=== PATIENT | male | born 1935 | race Hispanic/Latino ===

== ENCOUNTER 2018-01-03 12:22 | Inpatient (IN) | payer MEDICARE ==
--- NOTE | 2018-01-03 12:57 | ED PDOC ---
Arrival/HPI - General Time Seen by Provider: 01/03/18 12:32 Historian: Patient - History of Present Illness Narrative History of Present Illness (Text): 01/03/18 12:50 A 82 year old male, whose past medical history includes hyperlipidemia, angina, CA, 1 stent, arthritis, and benign stomach tumor removed, presents to the emergency department complaining of cough with phlegm, weakness, and shortness of breath for 5 days. Patient reports after returning from [place], patient began experiencing symptoms and was shortness of breath after going up flight of stairs. Patient was sent by automatic engraver for possible pneumonia. Notes also experiencing slight fever and rhinorrhea. Patient denies any other complaints at this time. PMD: Dr. Monty Parekh Pulmonolgist: Dr. Vinny Gonzáles Time/Duration: < week (5 days) Past Medical History - Provider Review Nursing Documentation Reviewed: Yes - Cardiac Hx Cardiac Disorders: Yes Hx Angina: Yes Hx Hypertension: Yes - Pulmonary Hx Respiratory Disorders: No - HEENT Hx Cataracts: Yes (bilaterally) Other/Comment: history sinus polyps removedc sep 2013 - Renal Hx Renal Disorder: No - Hematological/Oncological Hx Blood Disorders: Yes Hx Cancer: Yes (throat cancer treated with radiation 10-12 yrs) - Integumentary Hx Dermatological Disorder: No - Musculoskeletal/Rheumatological Hx Arthritis: Yes (both knees) - Gastrointestinal Hx Gastrointestinal Disorders: Yes Hx Gastroesophageal Reflux: Yes Other/Comment: benign stomach tumor removal 1993 - Genitourinary/Gynecological Hx Genitourinary Disorders: Yes Hx Prostate Problems: Yes - Psychiatric Hx Psychophysiologic Disorder: No - Surgical History Hx Cardiac Catheterization: Yes (nov 2013 cardiac stenting) Other/Comment: removal benign tumor stomach wall 1993 throat CA bx 9 yrs ago egd colonscopies - Anesthesia Hx Anesthesia: Yes Hx Anesthesia Reactions: No Hx Malignant Hyperthermia: No Family/Social History - Physician Review Nursing Documentation Reviewed: Yes Family/Social History: No Known Family HX Smoking Status: Former Smoker Hx Alcohol Use: No Allergies/Home Meds Allergies/Adverse Reactions: Allergies No Known Allergies Allergy (Verified 08/08/12 10:27) Home Medications: Home Meds Medication Instructions Recorded Confirmed Carvedilol [Coreg] 12.5 mg PO BID 12/02/13 01/03/18 Esomeprazole Magnesium [Nexium] 40 mg PO DAILY 12/02/13 01/03/18 Aspirin [Ecotrin] 81 mg PO DAILY 09/09/16 01/03/18 Furosemide [Lasix] 20 mg PO DAILY 09/09/16 01/03/18 Lisinopril [Zestril] 2.5 mg PO DAILY 09/09/16 01/03/18 Potassium Chloride [Klor-Con M10] 10 meq PO DAILY 09/09/16 01/03/18 Rosuvastatin Calcium [Crestor] 20 mg PO DAILY 09/09/16 01/03/18 Review of Systems - Physician Review All systems were reviewed & negative as marked: Yes - Review of Systems Constitutional: Fevers (slightly), Other (weakness). absent: Night Sweats ENT: Rhinorrhea Respiratory: SOB, Cough (with phlegm) Cardiovascular: GUILLERMO. absent: Chest Pain, Palpitations Gastrointestinal: absent: Abdominal Pain, Diarrhea, Nausea, Vomiting Physical Exam Vital Signs Reviewed: Yes Vital Signs Temp Pulse Resp BP Pulse Ox 01/03/18 15:27 65 20 116/62 99 01/03/18 15:24 116/62 01/03/18 12:23 98.2 F 58 L 19 110/54 L 96 Temperature: Afebrile Blood Pressure: Normal Pulse: Regular Respiratory Rate: Normal Appearance: Positive for: Well-Appearing Pain Distress: None Mental Status: Positive for: Alert and Oriented X 3 - Systems Exam Head: Present: Atraumatic, Normocephalic Pupils: Present: PERRL Extroacular Muscles: Present: EOMI Conjunctiva: Present: Normal Mouth: Present: Moist Mucous Membranes Neck: Present: Normal Range of Motion Respiratory/Chest: Present: Clear to Auscultation, Good Air Exchange. No: Respiratory Distress, Accessory Muscle Use Cardiovascular: Present: Regular Rate and Rhythm, Normal S1, S2. No: Murmurs Abdomen: No: Tenderness, Distention, Peritoneal Signs Back: Present: Normal Inspection Upper Extremity: Present: Normal Inspection. No: Cyanosis, Edema Lower Extremity: Present: Normal Inspection. No: Edema Neurological: Present: GCS=15, CN II-XII Intact, Speech Normal Skin: Present: Warm, Dry, Normal Color. No: Rashes Psychiatric: Present: Alert, Oriented x 3, Normal Insight, Normal Concentration Medical Decision Making ED Course and Treatment: 01/03/18 12:53 Impression: 82 year old male with shortness of breath, cough with phlegm, and weakness. No acute findings on physical examination. Differential Diagnosis included but are not limited to: Pneumonia vs CHF vs ACS Plan: -- Angio Chest CT -- EKG -- Chest X-ray -- Labs -- Lasix IV -- Blood Culture -- Venous Blood Gas -- Reassess and disposition Progress Notes: EKG: Ordered, reviewed, and independently interpreted the EKG. Rate : 38 BPM Rhythm : Sinus bradycardia Interpretation : 2nd degree AV block. Comparison : No previous EKG for comparison. 01/03/2018 13:56 Chest X-ray IMPRESSION: No active disease. Dictator: Patrick Rolle MD 01/03/18 15:18 Patient has a CXR that is negative. Patient has a trop 0.4 and bnp 4780. Patient was treated with Lasix. He still has symptoms. Dimer elevated. CT Angio complete and negative for PE. Patient feels very weak. During his ED stay patient also had an EKG with a rate at 38bpm and during his monitoring his HR has dropped to 40's. - Lab Interpretations Lab Results: 01/03/18 13:05 01/03/18 13:05 Lab Results 01/03/18 13:05: D-Dimer, Quantitative 839 H 01/03/18 13:05: PT 14.5 H, INR 1.27 H, APTT 30.4 01/03/18 13:05: Sodium 139, Chloride 101, Potassium 4.1, Carbon Dioxide 28, Anion Gap 15, BUN 24 H, Creatinine 1.4, Est GFR ( Amer) 59, Est GFR (Non- Af Amer) 49, Random Glucose 113 H, Calcium 8.9, Total Bilirubin 0.9, AST 59, ALT 71 H, Alkaline Phosphatase 83, Lactate Dehydrogenase 558, Total Creatine Kinase 338 H, CK-MB (CK-2) 2.9, CK-MB (CK-2) % Cancelled, Troponin I 0.04, NT- Pro-B Natriuret Pep 4780 H, Total Protein 6.6, Albumin 3.5, Globulin 3.1, Albumin/Globulin Ratio 1.2 01/03/18 13:05: pO2 30, VBG pH 7.38, VBG pCO2 51.0, VBG HCO3 30.2 H, VBG Total CO2 31.8 H, VBG O2 Sat (Calc) 59.0, VBG Base Excess 3.9 H, VBG Potassium 4.2, Sodium 137.0, Chloride 104.0, Glucose 114 H, Lactate 1.1, FiO2 21.0, Venous Blood Potassium 4.2 01/03/18 13:05: WBC 6.6, RBC 3.20 L, Hgb 10.0 L, Hct 29.2 L, MCV 91.3, MCH 31.3 , MCHC 34.2, RDW 15.2 H, Plt Count 195, MPV 9.0, Gran % 80.9 H, Lymph % (Auto) 7.3 L, [place] % (Auto) 10.8 H, Eos % (Auto) 0.8 L, Baso % (Auto) 0.2, Gran # 5.30 , Lymph # (Auto) 0.5 L, [place] # (Auto) 0.7 H, Eos # (Auto) 0.1, Baso # (Auto) 0.01 I have reviewed the lab results: Yes - RAD Interpretation Radiology Orders: 01/03/18 12:54 CHEST PORTABLE [RAD] Stat 01/03/18 14:05 ANGIO CHEST PE PROTOCOL [CT] Stat - Medication Orders Current Medication Orders: Discontinued Medications Furosemide (Lasix) 40 mg IVP STAT STA Stop: 01/03/18 15:18 Last Admin: 01/03/18 15:24 Dose: 40 mg MAR Blood Pressure Document 01/03/18 15:24 LA (Rec: 01/03/18 15:26 [id number]) Blood Pressure Blood Pressure (100/60-150/90) 116/62 IVP Administration Document 01/03/18 15:24 LA (Rec: 01/03/18 15:26 [id number]) Charges for Administration # of IVP Administrations 1 - Scribe Statement The provider has reviewed the documentation as recorded by the Nico Boyd Provider Scribe Attestation: All medical record entries made by the Scribe were at my direction and personally dictated by me. I have reviewed the chart and agree that the record accurately reflects my personal performance of the history, physical exam, medical decision making, and the department course for this patient. I have also personally directed, reviewed, and agree with the discharge instructions and disposition. Disposition/Present on Arrival - Present on Arrival Any Indicators Present on Arrival: No - Disposition Have Diagnosis and Disposition been Completed?: Yes Diagnosis: CHF (congestive heart failure), Symptomatic bradycardia Disposition Time: 16:43 Patient Plan: Observation Condition: FAIR
[2018-01-03 13:28] LABS: VENOUS BLOOD GAS BASE EXCESS 3.9 mmol/L (0.0-2.0); VENOUS BLOOD GAS PO2 30 mm/Hg (30-55); VENOUS BLOOD PH 7.38 (7.32-7.43)
[2018-01-03 13:29] LABS: BASO # 0.01 K/mm3 (0.0-2.0); BASO % 0.2 % (0.0-3.0); EOS # 0.1 (0.0-0.7); EOS % 0.8 % (1.5-5.0); GRAN # 5.3 (1.4-6.5); GRAN % 80.9 % (50.0-68.0); LYMPH # 0.5 (1.2-3.4); LYMPH % 7.3 % (22.0-35.0); MEAN CELL VOLUME 91.3 fl (80.0-105.0); MEAN CORPUSCULAR HEMOGLOBIN 31.3 pg (25.0-35.0); MEAN CORPUSCULAR HGB CONC 34.2 g/dl (31.0-37.0); MONO # 0.7 (0.1-0.6); MONO % 10.8 % (1.0-6.0); RBC 3.2 10^6/uL (3.5-6.1); RED CELL DISTRIBUTION WIDTH 15.2 % (11.5-14.5); WHITE BLOOD COUNT 6.6 10^3/ul (4.5-11.0)
[2018-01-03 13:38] LABS: ALB/GLOB RATIO 1.2 (1.1-1.8); ALBUMIN 3.5 g/dL (3.0-4.8); CALCIUM 8.9 mg/dL (8.4-10.5); INR 1.27 (0.93-1.08); PARTIAL THROMBOPLASTIN TIME 30.4 Seconds (25.1-36.5); PROTHROMBIN TIME 14.5 SECONDS (9.4-12.5)
[2018-01-03 13:49] LABS: TROPONIN I 0.04 ng/mL
[2018-01-03 13:58] LABS: CK-MB 2.9 ng/mL (0.0-3.6)
--- NOTE | 2018-01-03 13:58 | RAD ---
HISTORY: cough r/o pna COMPARISON: 08/22/2016 FINDINGS: LUNGS: No active pulmonary disease. PLEURA: No significant pleural effusion identified, no pneumothorax apparent. CARDIOVASCULAR: Normal. OSSEOUS STRUCTURES: No significant abnormalities. VISUALIZED UPPER ABDOMEN: Normal. OTHER FINDINGS: None. IMPRESSION: No active disease.
[2018-01-03] MEDS ORDERED: Iohexol 350 MG/100 ML VIAL ONE (14:15)
--- NOTE | 2018-01-03 15:11 | CT ---
PROCEDURE: CT Chest with contrast (Pulmonary Angiogram) HISTORY: r/o PE COMPARISON: None available. TECHNIQUE: Axial computed tomography images were obtained of the chest in the pulmonary arterial phase of enhancement. Coronal and sagittal reformatted images were created and reviewed. Intravenous contrast dose: 501 Radiation dose: Total exam DLP = 100 cc of Omni 350 mGy-cm. This CT exam was performed using one or more of the following dose reduction techniques: Automated exposure control, adjustment of the mA and/or kV according to patient size, and/or use of iterative reconstruction technique. FINDINGS: PULMONARY ARTERIES: Ground-glass densities are seen consistent with interstitial edema. Small pleural effusions are seen. Emphysematous changes are seen in the upper lobes. AORTA: No acute findings. No thoracic aortic aneurysm. LUNGS: Unremarkable. No nodule, mass or pulmonary consolidation. PLEURAL SPACES: Unremarkable. No effusion or pneuomothorax. HEART: Unremarkable. No cardiomegaly. No significant pericardial effusion. LYMPH NODES: No lymphadenopathy. BONES, CHEST WALL: Unremarkable. No fracture or destructive lesion OTHER FINDINGS: Unremarkable. IMPRESSION: No evidence of pulmonary embolus
--- NOTE | 2018-01-03 20:53 | CARD ---
APPROVED REPORT EKG Measurement Heart [id number] <Conclusion> Sinus bradycardia Abnormal ECG
[2018-01-03 22:34] VITALS: BMI 25.0
[2018-01-04 06:52] LABS: MEAN CELL VOLUME 91.2 fl (80.0-105.0); MEAN CORPUSCULAR HEMOGLOBIN 30.5 pg (25.0-35.0); MEAN CORPUSCULAR HGB CONC 33.4 g/dl (31.0-37.0); MEAN PLATELET VOLUME 9.2 fl (7.0-11.0); RBC 3.28 10^6/uL (3.5-6.1); RED CELL DISTRIBUTION WIDTH 15.3 % (11.5-14.5); WHITE BLOOD COUNT 5.4 10^3/ul (4.5-11.0)
[2018-01-04 07:07] LABS: ALB/GLOB RATIO 1.1 (1.1-1.8); ALBUMIN 3.4 g/dL (3.0-4.8); CALCIUM 8.9 mg/dL (8.4-10.5)
--- NOTE | 2018-01-04 07:08 | HP ---
HISTORY OF PRESENT ILLNESS: I was called by the emergency room to come and see him. I examined him in his room 261. He is an 82-year-old man who presents with a history according to the emergency department with cough, phlegm, weakness, shortness of breath for 5 days. He came back from [place]. He started having shortness of breath from the flight. He is going to see his cylinder handler because he thought he had pneumonia. Also, had a slight fever and runny nose. PAST MEDICAL HISTORY: He has a past medical history of hypertension; angina; CO, one stent; arthritis; benign stomach tumor, removed. He has cataracts bilaterally. Sinus polyp removed. History of throat cancer treated with radiation 10 to 12 years ago. He has arthritis in both of his knees. He has gastroesophageal reflux. He had a benign stomach tumor removed in 1993. He has prostate problems. He has cardiac cath and stenting in 11/2013. FAMILY HISTORY: No known family history. SOCIAL HISTORY: He is a former smoker. No alcohol. ALLERGIES: NO KNOWN DRUG ALLERGIES. MEDICATIONS: He takes Coreg, Nexium, Ecotrin, Lasix, Zestril, potassium and Crestor. REVIEW OF SYSTEMS: No acute vision changes or hearing changes. No sore throat. He just complains of fever and weakness. He is coughing up phlegm with shortness of breath. He has runny nose. He has dyspnea on exertion. No abdominal pain or chest pain or palpitations. No nausea, vomiting, constipation or diarrhea. Legs are weak. PHYSICAL EXAMINATION: VITAL SIGNS: He has a 98.2 temp, 58 pulse, 19 respiratory rate, 110/54 blood pressure and 96% O2 sat. GENERAL: He is well-appearing and comfortable in bed. Alert and oriented x3. HEENT: His head is atraumatic, normocephalic. Extraocular muscles are intact. Pupils are equal and reactive to light and accommodation. Mucous membranes are moist. NECK: Supple. No JVD. HEART: Regular rate. Normal S1, S2. LUNGS: Decreased breath sounds, but clear to auscultation. No wheezes. No rhonchi. No rales. I am not sure why he is short of breath. ABDOMEN: Soft, nontender. Positive bowel sounds. EXTREMITIES: Have no edema. NEUROLOGIC: His GCS is 15. Cranial nerves II through XII are grossly intact. Speech is normal. Alert and oriented x3. SKIN: Warm and dry. No apparent rashes or ulcers. LYMPHATICS: Thyroid midline. No palpable appreciable lymphadenopathy. LABORATORY DATA: He had a bunch of tests performed. Chest x-ray shows no acute disease. He has a 6.6 white count, 10 hemoglobin, 29.2 hematocrit, 495 platelets. His INR is 1.27. His D-dimer is 829. He had a CT angio, which showed no PE. Blood gas shows a 30 pO2. Lactase was 1.1. He had a 139 sodium, potassium 4.1, BUN 24, creatinine 1.4, GFR is 49, sugar is 113, calcium is 8.9. Total bili is 0.9, AST is 59, ALT is 71, alk phos is 83, lactate dehydrogenase is 558, total creatine kinase is 338. Troponin I is 0.04. The BNP was very high as 4780. Troponin total was 6.6. He is negative for the flu. ASSESSMENT AND PLAN: He will be put on his Lasix. Consults with Cardiology and Pulmonology. He has been on observation status. He will have oxygen, regular diet. He is here for congestive heart failure, dyspnea on exertion, shortness of breath picture. He is on observation status. Hopefully, he will do well overnight. Paul Parekh DO
[2018-01-04] MEDS ORDERED: Pantoprazole 40 mg EC Tab PO SCH (07:30)
--- NOTE | 2018-01-04 07:54 | CON ---
DATE: 01/04/2018 PULMONARY CONSULTATION REFERRING PHYSICIAN: Dr. Paul Parekh. REASON FOR CONSULTATION: Shortness of breath. HISTORY OF PRESENT ILLNESS: The patient is an 82-year-old male, with past medical history significant for chronic obstructive pulmonary disease, coronary artery disease, status post cardiac stent and arthritis, who presents to [facility] with increasing shortness of breath at rest, dyspnea on exertion, cough and minimal sputum production for the past 5 days. There is no history of chest pain, coughing up of blood, or chest pain-made worse with deep respirations. There is no history of temperatures, chills or infectious exposure. There is no history of night sweats, weight loss or appetite change prior to the above events. No history of leg or calf pains. No history of syncope or diaphoresis. No history of recent trauma. The patient has traveled to [place] and back recently. REVIEW OF SYSTEMS: No history of nausea, vomiting or diarrhea. No acute urinary symptoms. No new neurologic or musculoskeletal complaints. Rest of the review of systems is negative. ALLERGIES: NO KNOWN ALLERGIES. SOCIAL HISTORY: Positive for former tobacco usage. No alcohol. FAMILY HISTORY: No inheritable diseases. HOME MEDICATIONS: Include Crestor, Zestril, Lasix, Coreg and Ecotrin. PHYSICAL EXAMINATION: GENERAL: The patient appears comfortable at rest. He is not short of breath. He is not using accessory muscles for breathing. VITAL SIGNS: Temperature is 98.3, pulse 54, respirations 18/20, blood pressure 111/55. Oxygen saturation on nasal cannula is 95%. HEENT: Normocephalic, atraumatic. NECK: No JVD. CARDIOVASCULAR: Systolic ejection murmur at the lower left sternal border. Positive S3 gallop. LUNGS: Minimal crackles at the bases. Minimal bilateral rhonchi. No wheezing. EXTREMITIES: No clubbing, cyanosis or edema. Calves are nontender to palpation. GI: Abdomen is soft, nontender and nondistended. Bowel sounds are positive. SKIN: No acute rash. NEUROLOGIC: Exam limited at the present time. PERTINENT LABORATORY DATA: CAT scan of the chest was done as an angiogram protocol. There is no pulmonary embolism seen. There is interstitial edema seen consistent with congestive heart failure. There are also some small bilateral pleural effusions noted. There are no significant consolidations. There is no lymphadenopathy. CBC: White count 6.6, hemoglobin 10, hematocrit 29.2, platelets of 195,000. Complete metabolic profile: BUN 24, glucose 113, ALT 71, creatinine kinase 338. Troponin 0.04. B-type natriuretic peptide 4780. Rest of the metabolic profile is within normal limits. IMPRESSION: 1. Acute congestive heart failure. 2. Bilateral pleural effusions. 3. Chronic obstructive pulmonary disease. 4. Mild bronchitis. 5. Coronary artery disease. PLAN: The patient presents to [facility] with a 5-day history of worsening pulmonary symptoms. I did review the CAT scan of the chest-done as an angiogram protocol. As above, there is no pulmonary embolism seen. Findings are consistent with mild pulmonary edema and small bilateral pleural effusions. Cardiology evaluation with Dr. Han has been ordered. The patient has been started on intravenous Lasix. On physical exam, there is mild bronchospasm noted. I will start the patient on nebulizer treatments and inhaled steroids. Because of his age and above history, I will also start oral antibiotic therapy this morning. There are no temperatures noted in the hospital. There is no leukocytosis. The patient does feel better this morning and is clinically improved. Additional pulmonary intervention will be based on the clinical status of the patient. I will discuss the above with Dr. Parekh this morning. Thank you very much for this pulmonary consultation. Robert Tierney MD [facility]
[2018-01-04] MEDS: Budesonide 0.5 mg/2 ml Inhal Susp UD IH SCH ×2 (08:22→21:45)
[2018-01-04] MEDS: Levalbuterol 1.25 MG/3 ML Inhal Soln UD IH SCH ×3 (08:22→21:45)
[2018-01-04] MEDS: Potassium Chloride 10 mEq ER Tab PO SCH ×2 (08:58→15:48)
[2018-01-04] MEDS ORDERED: Sodium Chloride 0.9% 1,000 ML IV SCH (09:15)
[2018-01-04] MEDS ORDERED: Lidocaine 2% Inj (20ml) ONE (13:45)
[2018-01-04] MEDS ORDERED: Midazolam 2 MG/2 ML VIAL ONE ×2 (13:46→14:05)
[2018-01-04] MEDS ORDERED: Iodixanol 320 MG/ML 200 ML BOTTLE IV ONE (13:48)
[2018-01-04] MEDS: levoFLOXacin 500 MG TAB PO SCH (15:48)
--- NOTE | 2018-01-04 16:42 | CARDCATH ---
PROCEDURE DATE: 01/04/2018 HISTORY: The patient is an 82-year-old male, who presented with chest pain, malaise and shortness of breath. He has had high probability for CAD. A cardiac catheterization was recommended. PROCEDURE: Left heart catheterization with coronary arteriography and left ventriculogram. The right femoral artery was cannulated with a 6-Lithuanian sheath. There were no complications. I performed moderate sedation which included the presence of an independent trained observer that assisted in monitoring the patient's level of consciousness and physiologic status. After administration of Versed and fentanyl, my intra service time was 15 minutes. The findings on catheterization revealed a left ventricle that revealed inferior wall hypokinesis with an estimated ejection fraction of 50%. His LVEDP was 12 mmHg. His coronary anatomy revealed the left main artery was unremarkable. The LAD and diagonal vessels revealed diffuse atherosclerosis without critical lesions. Circumflex artery and obtuse marginal branches revealed diffuse atherosclerosis without critical lesions. The right coronary artery was a dominant vessel and found to have diffuse atherosclerosis without critical lesions. The stents could not be clearly visualized. Angio-Seal was used to close the femoral artery site. The patient tolerated the procedure well. In summary, the procedure revealed an old inferior wall OR on LV gram with an EF of 50%. Diffuse atherosclerosis throughout its coronary tree without critical lesions. Given these findings, the patient's symptoms are not from an acute coronary syndrome. His LVEDP is at a good level. We will discontinue the Lasix. We will discontinue his Plavix. The patient will need to continue on aspirin and Lipitor and continue a cardiac risk reduction program. We will continue his antibiotics as well as his GRECIA inhibitor. Evin Han MD
--- NOTE | 2018-01-04 17:54 | CON ---
DATE: 01/04/2018 CARDIOLOGY CONSULTATION HISTORY OF PRESENT ILLNESS: The patient is an 82-year-old male who just returned from [place]. In [place], the patient had several days of general malaise with substernal discomfort. He presented to the emergency room with shortness of breath consistent with CHF. Workup included a CT scan, which shows no pulmonary embolism. His chest x-ray revealed no active disease. The patient's past medical history includes the PTCA and stent 4 years ago performed at [facility]. In addition, he suffers from hypercholesterolemia, hypertension and is on chronic Lasix in the past. He was placed on beta-blockers, Coreg, which has resulted in heart block as well as marked bradycardia. He denies history of smoking. No diabetes mellitus. REVIEW OF SYSTEMS: Fourteen-point review of systems was reviewed in detail. Besides his above cardiac symptoms, no edema in the lower extremities. No history of bleeding. PHYSICAL EXAMINATION: VITAL SIGNS: Blood pressure is 111/55, heart rate is in the 50s with occasional heart block and bradycardia. NECK: Negative JVD. LUNGS: No rales noted. HEART: Reveals S1, S2. EXTREMITIES: Without edema. EKG shows heart block with bradycardia. LABORATORY DATA: Hemoglobin is 10. Chemistries: BUN and creatinine are 23 and 1.4. LFTs are mildly elevated. His ProBNP is 4780. Troponin is indeterminate at 0.04. IMPRESSION: 1. Acute systolic congestive heart failure. 2. Bradycardia with heart block. 3. Unstable angina. 4. Questionable [id number] myocardial infarction. 5. History of percutaneous transluminal coronary angioplasty and stent in the past. 6. Hypertension. 7. Hypercholesterolemia. PLAN: Given these findings, we will discontinue his beta-blockers. We will start the patient on IV fluids in preparation for cardiac catheterization. We will load the patient with aspirin and Plavix. I have discussed risks, benefits with the patient in detail. The patient is agreeable. Evin Han MD
[2018-01-05 05:48] VITALS: O2SAT 94
--- NOTE | 2018-01-05 06:30 | DS ---
HISTORY OF PRESENT ILLNESS: He had a good night last night. He slept well. He has got no shortness of breath. He walked a little bit. He is on Coreg, Ecotrin, potassium, Lasix IV, Levaquin, Lipitor, Protonix, Pulmicort, Xopenex, and Zestril. PHYSICAL EXAMINATION: VITAL SIGNS: He has a 98.3 temperature, 54 pulse, 111/55 blood pressure, 20 respiratory rate, 95% O2 sat on nasal cannula. HEENT: Head is atraumatic, normocephalic. Throat is moist. NECK: Supple. HEART: Regular rate. LUNGS: Clear to auscultation bilaterally. ABDOMEN: Soft, obese, nontender. EXTREMITIES: No edema. LABORATORY DATA: He has a 5.4 white count, 10 hemoglobin, 29.9 hematocrit, with 207 platelets. He has a 141 sodium, potassium 3.6, BUN 23, creatinine 1.4. GFR is 49, sugar is 111, calcium is 8.9, total bilirubin is 0.78, AST is 75, ALT is 92, alkaline phosphatase is 80, total protein is 6.4. Flu is negative. ASSESSMENT AND PLAN: He was seen already by Pulmonology. We will add Levaquin. I am waiting for Cardiology to see him. I believe I can discharge him later today. He is on observation. He came in with a acute congestive heart failure picture with chronic obstructive pulmonary disease, coronary artery disease, dyspnea on exertion, and hopefully to discharge him later today on his medications Coreg, Ecotrin, potassium, Lasix, Levaquin for 7 days, Lipitor, Protonix, Pulmicort, Xopenex, and Zestril. Paul Parekh DO
--- NOTE | 2018-01-05 07:24 | PN ---
DATE: PULMONARY NOTE SUBJECTIVE: The patient appears comfortable this morning. He is not short of breath at rest. OBJECTIVE VITAL SIGNS: Temperature is 97.8, pulse 58, respirations 18, blood pressure 127/61. Oxygen saturation on room air is 94%. HEENT: Normocephalic, atraumatic. NECK: No JVD. CARDIOVASCULAR: Systolic ejection murmur at the lower left sternal border. Positive S3 gallop. LUNGS: Less crackles at the bases. Much less rhonchi. No wheezing. EXTREMITIES: No clubbing, cyanosis or edema. Calves are nontender to palpation. GASTROINTESTINAL: Abdomen is soft, nontender and nondistended. Bowel sounds are positive. SKIN: No acute rash. NEUROLOGIC: Exam limited at the present time. IMPRESSION 1. Acute congestive heart failure. 2. Bilateral pleural effusions. 3. Chronic obstructive pulmonary disease. 4. Mild bronchitis. 5. Coronary artery disease. PLAN: The patient appears comfortable this morning. He is not short of breath at rest. He does state to feeling much better overall. On physical exam, his bronchospasm is certainly less. In addition, the alveolar-arterial gradient is also less. Oxygen saturation on room air is now 94%. I will continue with the current nebulizer treatments and inhaled steroids for now. I will also continue with the oral antibiotic therapy. I would continue with the treatment for congestive heart failure as per Cardiology. Input by Dr. Han is noted. The patient is status post cardiac catheterization. Clinical status of the patient is certainly improved - compared to the initial presentation. The patient is advised to be out of bed as much as possible. I will discuss the above with the attending physician. Robert Tierney MD MTDIsabel
[2018-01-05] MEDS: Levalbuterol 1.25 MG/3 ML Inhal Soln UD IH SCH (07:28)
[2018-01-05] MEDS: Budesonide 0.5 mg/2 ml Inhal Susp UD IH SCH (07:28)
[2018-01-05] MEDS: Potassium Chloride 10 mEq ER Tab PO SCH (08:41)
[2018-01-05] MEDS: levoFLOXacin 500 MG TAB PO SCH (09:46)
[2018-01-05 11:54] VITALS: BP 133/65; PULSE 66; RESP 16; TEMP 97.6
--- NOTE | 2018-01-05 11:59 | PN ---
DATE: 01/05/2018 CARDIOLOGY FOLLOWUP SUBJECTIVE: The patient is ambulating without symptoms. PHYSICAL EXAMINATION VITAL SIGNS: Blood pressure is 139/69, the heart rate is in the 80s. NECK: Negative JVD. LUNGS: Without rales. HEART: Reveals S1, S2. EXTREMITIES: Without edema. The right groin site is stable. LABORATORY DATA: Laboratories were not drawn today. IMPRESSION: 1. Symptomatic bradycardia, which is better off beta blockers. 2. Questionable bronchitis. 3. Nonobstructive coronary artery disease. 4. Stable angina. 5. Patent stents in the past. PLAN: Given these findings, we will ambulate the patient. We will discuss with Dr. Parekh. From a cardiac perspective, the patient can be discharged. Evin Han MD
--- NOTE | 2018-01-06 03:06 | DS ---
HISTORY OF PRESENT ILLNESS: He had a cardiac cath yesterday with Dr. Han, it was diagnostic, no stents were placed. He is going to go home today on Ecotrin, potassium, Levaquin for 7 more days, Lipitor, Pepcid, Zestril and Advair. He will follow up in the outpatient next week and hopefully he will do very well. He is comfortable this morning. No chest pain or shortness of breath. No abdominal pain. He slept well. PHYSICAL EXAMINATION: VITAL SIGNS: He has a 97.8 temp, 60 pulse, 127/61 blood pressure, 20 respiratory rate, 94% O2 sat on room air. HEENT: His head is atraumatic, normocephalic. HEART: Regular rate. LUNGS: Actually clear and decreased breath sounds, but clear. ABDOMEN: Soft. EXTREMITIES: No edema. LABORATORY DATA: He had a 141 sodium, potassium 3.6, BUN 23, creatinine 1.4, GFR is 49, calcium is 8.9, total bili is 0.7. Even though his BNP was 4780, Dr. Han does not want him on any Lasix. WBC is 5.4, hemoglobin 10, hematocrit 29.9, platelets of 207. ASSESSMENT AND PLAN: We will discharge and follow up on the outpatient. Paul Parkeh DO
== END 2018-01-05 14:41 | disposition home or self-care (01) | DRG 287 ==
LOC: ED 12:22 → ERH 15:33 → 2RNO 17:18 → OBSVTOIN 01-04 11:38
PROVIDERS: ADMIT Family Medicine; ATTEND Family Medicine
PROC: 4A023N7 Measurement of Cardiac Sampling and Pressure, Left Heart, Percutaneous Approach (ICD-10-PCS; principal; 2018-01-04)
PROC: B211YZZ Fluoroscopy of Multiple Coronary Arteries using Other Contrast (ICD-10-PCS; 2018-01-04)
PROC: B215YZZ Fluoroscopy of Left Heart using Other Contrast (ICD-10-PCS; 2018-01-04)
PROC: 3E0F7GC Introduction of Other Therapeutic Substance into Respiratory Tract, Via Natural or Artificial Opening (ICD-10-PCS; 2018-01-04)
DX: I11.0 Hypertensive heart disease with heart failure (principal); I50.21 Acute systolic (congestive) heart failure; I25.110 Atherosclerotic heart disease of native coronary artery with unstable angina pectoris; I25.2 Old myocardial infarction; R00.1 Bradycardia, unspecified; E78.00 Pure hypercholesterolemia, unspecified; J44.9 Chronic obstructive pulmonary disease, unspecified; K21.9 Gastro-esophageal reflux disease without esophagitis; M17.0 Bilateral primary osteoarthritis of knee; H26.9 Unspecified cataract; Z85.819 Personal history of malignant neoplasm of unspecified site of lip, oral cavity, and pharynx; Z92.3 Personal history of irradiation; Z87.891 Personal history of nicotine dependence; Z95.5 Presence of coronary angioplasty implant and graft; Z79.82 Long term (current) use of aspirin